=== PATIENT | female | born 1935 ===

== ENCOUNTER 2017-04-28 00:40 | Emergency (ER) | payer MEDICARE, MEDICAID ==
[2017-04-28 01:25] VITALS: RESP 18; TEMP 97.7; BMI 37.8
--- NOTE | 2017-04-28 01:39 | C.PDOC ---
History Of Present Illness 81 year old female presents to the ER for evaluation of elevated BP. Patient states she took her blood pressure at home and in was in the 180s/70s. Patient states she felt a mild headache, which resolved by ED arrival. She recently had her HTN medications changed by her verification clerk; currently takes verapamil 120mg, valsartan 320mg, and hctz 12.5mg. Patient is unsure which of these medication are new/were adjusted; she is scheduled for a cardiology follow up appt next week. She denies chest pain, SOB, palpitations, headache, dizziness, visual changes, facial droop, slurred speech, dizziness. Time Seen by Provider: 04/28/17 00:53 Chief Complaint (Nursing): Headache History Per: Patient History/Exam Limitations: no limitations Onset/Duration Of Symptoms: Hrs Current Symptoms Are (Timing): Gone Severity: None Associated Symptoms: denies: Photophobia, Blurred Vision, Nausea, Vomiting, Extremity Weakness Past Medical History Reviewed: Historical Data, Nursing Documentation, Vital Signs Vital Signs: Last Vital Signs Temp 97.7 F 04/28/17 01:17 Pulse 62 04/28/17 01:48 Resp 18 04/28/17 01:48 BP 168/64 H 04/28/17 01:48 Pulse Ox 95 04/28/17 05:52 - Medical History PMH: Asthma, COPD, HTN, Hyperlipidemia Surgical History: Cholecystectomy, Pacemaker, Tonsillectomy Family History: States: No Known Family Hx - Social History Hx Alcohol Use: No Hx Substance Use: No - Immunization History Hx Tetanus Toxoid Vaccination: Yes Hx Influenza Vaccination: Yes Hx Pneumococcal Vaccination: Yes Review Of Systems Except As Marked, All Systems Reviewed And Found Negative. Constitutional: Negative for: Fever, Chills Cardiovascular: Negative for: Chest Pain, Palpitations Respiratory: Negative for: Cough, Shortness of Breath Gastrointestinal: Negative for: Nausea, Vomiting, Abdominal Pain, Diarrhea Skin: Negative for: Rash Neurological: Positive for: Headache (resolved). Negative for: Weakness, Numbness, Seizures, Altered Mental Status, Dizziness Physical Exam - Physical Exam Appears: Well, Non-toxic, No Acute Distress Skin: Normal Color, Warm, Dry Eye(s): bilateral: Normal Inspection, PERRL, EOMI Oral Mucosa: Moist Cardiovascular: Rhythm Regular Respiratory: Normal Breath Sounds, No Rales, No Rhonchi, No Wheezing Gastrointestinal/Abdominal: Normal Exam, Bowel Sounds, Soft, No Tenderness Extremity: Normal ROM Neurological/Psych: Oriented x3, Normal Speech, Normal Cognition, Normal Cranial Nerves ED Course And Treatment O2 Sat by Pulse Oximetry: 95 (Room air) Pulse Ox Interpretation: Normal Progress Note: Patient currently asymptomatic, and BP is 168/64. Patient instructed to follow up with her verification clerk as scheduled for further eval/ medication adjustment. She understands she should return to ED if she develops any concerning symptoms. Disposition Counseled Patient/Family Regarding: Diagnosis, Need For Followup - Disposition Referrals: [facility] [Outside] Disposition: HOME/ ROUTINE Disposition Time: 01:40 Condition: STABLE Additional Instructions: SEGUIMIENTO CON WILLIS CARDILOGO PARA ROSSI [facility]IST[facility] MEDICAMENTOS DE PRESIN ARTERIAL USE TYLENOL AYLIN SEA NECESARIO SI TIENE DOLOR SI USTED TIENE CUALQUIERA CON RESPECTO A LOS SINTOMAS, VUELVA A LA EVELIO DE EMERGENCIA Instructions: Hypertension (ED) Forms: Chogger (Qatari) Print Language: FAROESE - POA Present On Arrival: None - Clinical Impression Clinical Impression: Hypertension - Scribe Statement The provider has reviewed the documentation as recorded by the Scribe Tres Perkins All medical record entries made by the Scribe were at my direction and personally dictated by me. I have reviewed the chart and agree that the record accurately reflects my personal performance of the history, physical exam, medical decision making, and the department course for this patient. I have also personally directed, reviewed, and agree with the discharge instructions and disposition.
[2017-04-28 01:48] VITALS: BP 168/64; PULSE 62
[2017-04-28 05:49] VITALS: O2SAT 95
== END 2017-04-28 01:49 | disposition home or self-care (01) ==
LOC: C.ER 00:40
DX: I10 Essential (primary) hypertension (principal)